=== PATIENT | male | born 1965 | race Caucasian/White ===

== ENCOUNTER 2024-09-22 18:20 | Emergency (ER) | payer OTHER ==
[~2024-09-22] VITALS: Ht 188 cm; Wt 100.0 kg
[2024-09-22 18:23] VITALS: O2SAT 99
[2024-09-22 19:12] LABS: BASOPHILS % 0.5 % (0.0-2.0); EOSINOPHILS % 1.9 % (0.0-5.0); HEMATOCRIT. 41.4 % (42.0-52.0); LYMPHOCYTES % 16.8 % (20.0-50.0); MEAN CORPUSCULAR HEMOGLOBIN 30.3 pg (28.0-32.0); MEAN CORPUSCULAR HGB CONC 33.8 g/dL (31.0-37.0); MEAN CORPUSCULAR VOLUME 89.7 fL (80.0-94.0); MEAN PLATELET VOLUME 9.1 fl (7.4-10.4); MONOCYTES % 12.4 % (2.0-8.0); NEUTROPHILS % 68.4 % (40.0-76.0); PLATELET 383 x1000/uL (130-400); RED BLOOD CELL COUNT 4.62 mill/uL (4.7-6.1); RED CELL DISTRIBUTION WIDTH 12.9 % (11.6-14.6); WHITE BLOOD COUNT 10.7 x1000/uL (4.5-11.0)
[2024-09-22 19:17] LABS: CHLORIDE 99 mEq/L (98-107); POTASSIUM 3.1 mEq/L (3.5-5.1); SODIUM 139 mEq/L (136-145)
[2024-09-22 19:18] LABS: CARBON DIOXIDE 27 mEq/L (21-32)
[2024-09-22 19:19] LABS: CALCIUM 9.5 mg/dL (8.7-10.4)
[2024-09-22 19:23] LABS: CREATININE 1.3 mg/dL (0.6-1.3)
[2024-09-22 19:24] LABS: GLUCOSE 133 mg/dL (70-105); TROPONIN I HIGH SENSITIVITY 8 ng/L (3.0-53); UREA NITROGEN BLOOD 15 mg/dL (9-23)
[2024-09-22 19:25] LABS: ALANINE AMINOTRANSFERASE 405 IU/L (10-49); ALBUMIN 4.5 g/dL (3.2-4.8); ASPARTATE AMINOTRANSFERASE 467 IU/L (<34)
[2024-09-22 19:26] LABS: BILIRUBIN DIRECT 0.6 mg/dL (<=3.0); BILIRUBIN TOTAL 1.2 mg/dL (0.1-1.0); PROTEIN TOTAL 7.8 g/dL (6.0-8.3)
[2024-09-22] MEDS: SODIUM CHLORIDE 0.9% 1,000 ML IV ONE (20:19)
[2024-09-22] MEDS: KETOROLAC 30MG/ML VIAL IV ONE (20:19)
[2024-09-22] MEDS: ONDANSETRON HCL 4MG/2ML INJ IV ONE (20:19)
[2024-09-22] MEDS: METRONIDAZOLE 500 MG PREMIX 100 ML IV ONE (20:47)
[2024-09-22] MEDS: KCL 10MEQ/50ML PREMIX 50 ML IV SCH (21:17)
[2024-09-22] MEDS: CEFTRIAXONE 2GM/50ML 50 ML IV ONE (21:17)
[2024-09-22] MEDS: MORPHINE SULFATE 4 MG/ML INJ (FOR IV/IM USE) IV ONE (22:11)
[2024-09-22] MEDS ORDERED: HYDROCODONE/ACETAMINOPHEN 5/325MG TABLET PO PRN (23:45)
[2024-09-22] MEDS ORDERED: ACETAMINOPHEN 325MG TABLET PO PRN ×2 (23:45)
[2024-09-22] MEDS ORDERED: ONDANSETRON HCL 4MG/2ML INJ IV PRN (23:45)
[2024-09-22] MEDS ORDERED: IPRATROPIUM/ALBUTEROL 0.5-3(2.5)MG/3ML NEB HHN PRN (23:45)
[2024-09-22] MEDS ORDERED: CLONIDINE 0.1MG TABLET PO PRN (23:45)
[2024-09-22] MEDS ORDERED: MAGNESIUM/ALUMINUM HYDROXIDE/SIMETHICONE 30ML UDC PO PRN (23:45)
[2024-09-22] MEDS ORDERED: DOCUSATE SODIUM 100MG CAPSULE PO PRN (23:45)
[2024-09-23] MEDS: SODIUM CHLORIDE 0.9% 1,000 ML IV SCH
[2024-09-23 01:47] VITALS: BP 133/89; PULSE 60; RESP 20; TEMP 36.8; O2SAT 98
[2024-09-23] MEDS ORDERED: METRONIDAZOLE 500 MG PREMIX 100 ML IV SCH (06:00)
[2024-09-23] MEDS ORDERED: ENOXAPARIN 30MG/0.3ML SYR SUBCUT SCH (09:00)
[2024-09-23] MEDS ORDERED: CEFTRIAXONE 1GM/50ML 50 ML IV SCH (21:00)
== END 2024-09-23 02:38 | disposition short-term general hospital (02) ==
LOC: ER 18:20 → EDBEDREQ 23:13 → EDBEDREQTM 23:13 → ER 09-23 02:38
DX: K80.00 Calculus of gallbladder with acute cholecystitis without obstruction (principal); I10 Essential (primary) hypertension; I25.2 Old myocardial infarction; Z79.899 Other long term (current) drug therapy; Z98.890 Other specified postprocedural states
CPT/HCPCS: 80076; 80048; 83690; 85025; 84484; 36415; 84145; 71045; 74176; 76700; 93005; 96361 ×2; 96365; 96375; 99285; J0696; J1885; J3490; J2405; J3480; J2270; J7030 ×2; Z7610 ×2